=== PATIENT | male | born 1985 | race Asian ===

== ENCOUNTER → 2017-10-01 | Outpatient (CLI) | payer OTHER ==
[2017-10-01 10:18] LABS: HEPATITIS B AB POS
== END | disposition home or self-care (01) ==
LOC: C.LAB1850 08:36 → EDSTATUS 10-07 11:01
PROVIDERS: ATTEND Nurse Practitioner Adult Health
DX: Z77.21 Contact with and (suspected) exposure to potentially hazardous body fluids (principal); W46.1XXA Contact with contaminated hypodermic needle, initial encounter

== ENCOUNTER → 2017-11-12 | Outpatient (CLI) | payer OTHER | END | disposition home or self-care (01) | LOC: C.LAB1850 10:08 → EDSTATUS 11-13 11:31 | PROVIDERS: ATTEND Nurse Practitioner Adult Health | DX: T14.90XA Injury, unspecified, initial encounter (principal); W46.1XXA Contact with contaminated hypodermic needle, initial encounter ==

== ENCOUNTER → 2018-01-07 | Outpatient (CLI) | payer OTHER | END | disposition home or self-care (01) | LOC: C.LAB1850 09:26 → EDSTATUS 01-15 10:38 | PROVIDERS: ATTEND Nurse Practitioner Adult Health | DX: Z77.21 Contact with and (suspected) exposure to potentially hazardous body fluids (principal); W46.0XXA Contact with hypodermic needle, initial encounter ==

== ENCOUNTER → 2018-04-01 | Outpatient (CLI) | payer OTHER | END | disposition home or self-care (01) | LOC: C.LAB1850 09:44 | PROVIDERS: ATTEND Emergency Medicine | DX: T14.90XA Injury, unspecified, initial encounter (principal); W46.1XXA Contact with contaminated hypodermic needle, initial encounter ==